=== PATIENT | male | born 1965 | race Caucasian/White ===

== ENCOUNTER → 2016-08-09 | Outpatient (REF) | payer OTHER ==
[~2016-08-09] MED LIST: ALBU17IN INH; ALPRTAB4 PO; ANDRGEL TD; BUPR1TAB17 PO; SIMV40TA2 PO; TRAZ100T4 PO
== END ==
LOC: M LAB REF 13:10
PROVIDERS: ATTEND Internal Medicine
DX: E29.1 Testicular hypofunction (principal)

== ENCOUNTER → 2017-01-14 | Outpatient (REF) | payer OTHER ==
[~2017-01-14] MED LIST changes: -BUPR1TAB17 PO; +BUPR1TAB53 PO; +TRAZ-136 PO; -TRAZ100T4 PO
== END ==
LOC: M LAB REF 17:34
PROVIDERS: ATTEND Internal Medicine Medical Oncology
DX: C62.90 Malignant neoplasm of unspecified testis, unspecified whether descended or undescended (principal)

== ENCOUNTER → 2017-02-18 | Outpatient (REF) | payer OTHER | LOC: M LAB REF 15:27 | PROVIDERS: ATTEND Internal Medicine | DX: E29.1 Testicular hypofunction (principal) ==

== ENCOUNTER 2017-04-05 18:21 | Emergency (ER) | payer OTHER ==
[2017-04-05 20:44] LABS: KETONE, URINE AUTO RFX NEGATIVE (NEGATIVE); LEUKOCYTE ESTERASE UR AUTO RFX NEGATIVE (NEGATIVE); NITRITE, URINE AUTO RFX NEGATIVE (NEGATIVE); RBC, URINE AUTO RFX 2 /HPF (0-3); SPECIFIC GRAVITY UR AUTO RFX 1.006 (1.002-1.035); SQUAM EPITHELIAL CELL UR AURFX 0 /HPF (0-6); WBC, URINE AUTO RFX 1 /HPF (0-3)
[2017-04-05] MEDS: NS 500 ML IV (20:46)
[2017-04-05] MEDS: MORPHINE 4 MG/ML 1ML SYRINGE IV (20:46)
[2017-04-05 20:56] LABS: BASO % 0.4 % (0.0-1.0); EOS # 0.3 10^3/uL (0.0-0.50); EOS % 2.9 % (0.0-3.0); HEMATOCRIT 43.8 % (42.0-52.0); HEMOGLOBIN 14.8 g/dl (14.0-18.0); IMMATURE GRANULOCYTE % 0.4 % (0-0); LYMPH # 2.1 10^3/uL (1.5-4.5); LYMPH % 24.7 % (24.0-44.0); MEAN CORPUSCULAR HGB CONC 33.8 g/dl (32.0-36.5); MEAN CORPUSCULAR VOLUME 88.7 fl (80.0-96.0); MONO # 0.6 10^3/uL (0.0-0.8); MONO % 7.3 % (0.0-5.0); NEUTROPHILS # 5.5 10^3/uL (1.8-7.7); NEUTROPHILS % 64.3 % (36.0-66.0); PLATELET COUNT, AUTOMATED 185 10^3/uL (150-450); RED BLOOD COUNT 4.94 10^6/uL (4.30-6.10); RED CELL DISTRIBUTION WIDTH 12.4 % (11.5-14.5); WHITE BLOOD COUNT 8.6 10^3/uL (4.0-10.0)
[2017-04-05 21:19] LABS: ALBUMIN 4.1 GM/DL (3.2-5.2); ALBUMIN/GLOBULIN RATIO 1.05 (1.00-1.93); ALKALINE PHOSPHATASE 53 U/L (45-117); ALT/SGPT 73 U/L (12-78); ANION GAP 6 MEQ/L (8-16); AST/SGOT 24 U/L (7-37); BILIRUBIN,DIRECT < 0.1 MG/DL (0.0-0.2); BILIRUBIN,TOTAL 0.2 MG/DL (0.2-1.0); BLOOD UREA NITROGEN 21 MG/DL (7-18); CALCIUM LEVEL 8.8 MG/DL (8.5-10.1); CARBON DIOXIDE LEVEL 31 MEQ/L (21-32); CHLORIDE LEVEL 103 MEQ/L (98-107); CREATININE FOR GFR 1.09 MG/DL (0.70-1.30); GLOMERULAR FILTRATION RATE > 60.0 (>60); GLUCOSE, FASTING 135 MG/DL (70-105); LIPASE 341 U/L (73-393); POTASSIUM SERUM 3.8 MEQ/L (3.5-5.1); SODIUM LEVEL 140 MEQ/L (136-145)
[2017-04-05] MEDS ORDERED: ISOVUE-370 76% 100ML VIAL (Q9967) As Ordered (21:23)
== END 2017-04-06 00:04 | disposition home or self-care (01) ==
LOC: M ED 04-06 00:04
DX: R10.30 Lower abdominal pain, unspecified (principal); E11.9 Type 2 diabetes mellitus without complications; E78.5 Hyperlipidemia, unspecified; J45.909 Unspecified asthma, uncomplicated; G47.30 Sleep apnea, unspecified; F41.9 Anxiety disorder, unspecified; F32.9 Major depressive disorder, single episode, unspecified; Z85.47 Personal history of malignant neoplasm of testis; Z90.79 Acquired absence of other genital organ(s); Z79.84 Long term (current) use of oral hypoglycemic drugs; Z79.899 Other long term (current) drug therapy
CPT/HCPCS: Q9967

== ENCOUNTER → 2017-08-18 | Outpatient (REF) | payer OTHER ==
[2017-08-18 13:04] LABS: TESTOSTERONE 871 NG/DL (241-827)
== END ==
LOC: M LAB REF 12:19
DX: E29.1 Testicular hypofunction (principal)

== ENCOUNTER → 2017-08-29 | Outpatient (REF) | payer OTHER | LOC: M LAB REF 19:04 | DX: R19.7 Diarrhea, unspecified (principal) ==

== ENCOUNTER → 2018-02-24 | Outpatient (REF) | payer OTHER ==
[2018-02-24 13:45] LABS: TESTOSTERONE 1236 NG/DL (241-827)
== END ==
LOC: M LAB REF 12:40
DX: E29.1 Testicular hypofunction (principal)
CPT/HCPCS: 84403

== ENCOUNTER → 2018-04-08 | Outpatient (CLI) | payer OTHER ==
[~2018-04-08] MED LIST changes: +AMLO-151 PO; +ANDR1.62 TD; +CEPH500C PO; +METF750T; -TRAZ-136 PO; +TRAZ-163 PO; +TYLE500T78 PO; +VENTAER IN
--- NOTE | 2018-04-08 09:47 | REP ---
Right upper quadrant sonography: History: Elevated liver function studies. Findings: Scanning through right upper quadrant of the abdomen demonstrates a normal sized thin-walled gallbladder without evidence of stone or polyp. Common bile duct is normal measuring 0.5 cm in greatest diameter. There is some increased echogenicity in the liver consistent with fatty infiltration. There is some sparing near the gallbladder. Limited views of the pancreas show no abnormality. There is no evidence of ascites. A normal caliber aorta is seen. No right renal abnormality is noted. The right kidney measures 12.4 x 5.8 x 6.0 cm. Impression: There is evidence of mild fatty infiltration of the liver. Otherwise negative right upper quadrant sonography. Electronically Signed by Dewayne Guadalupe MD 04/08/2018 06:35 P
== END ==
LOC: M RAD 06:36
PROVIDERS: ATTEND Internal Medicine Hematology & Oncology
DX: R79.89 Other specified abnormal findings of blood chemistry (principal)

== ENCOUNTER → 2018-09-01 | Outpatient (REF) | payer OTHER | LOC: M LABDRAW1 12:53 | PROVIDERS: ATTEND Internal Medicine | DX: E29.1 Testicular hypofunction (principal) ==

== ENCOUNTER → 2019-03-10 | Outpatient (REF) | payer OTHER ==
[~2019-03-10] MED LIST changes: -METF750T; +METF750T36; -SIMV40TA2 PO; +SIMV40TA20 PO
== END ==
LOC: M LAB REF 12:32
PROVIDERS: ATTEND Internal Medicine
DX: E29.1 Testicular hypofunction (principal)

== ENCOUNTER → 2020-03-28 | Outpatient (REF) | payer OTHER ==
[~2020-03-28] MED LIST changes: -AMLO-151 PO; +AMLO-180 PO; -TRAZ-163 PO; +TRAZ-257 PO
[2020-03-28 13:36] LABS: RHEUMATOID FACTOR QUANT < 10.0 IU/ML (<15.0)
[2020-03-28 13:38] LABS: TESTOSTERONE 917 NG/DL (241-827)
== END ==
LOC: M LAB REF 12:30
PROVIDERS: ATTEND Internal Medicine
DX: E29.1 Testicular hypofunction (principal); M15.9 Polyosteoarthritis, unspecified

== ENCOUNTER → 2020-09-29 | Outpatient (REF) | payer OTHER | LOC: M LAB REF 12:41 | PROVIDERS: ATTEND Internal Medicine | DX: E29.1 Testicular hypofunction (principal) ==

== ENCOUNTER → 2021-05-08 | Outpatient (REF) | payer OTHER | LOC: M LAB REF 11:34 | PROVIDERS: ATTEND Internal Medicine | DX: E29.1 Testicular hypofunction (principal) ==

== ENCOUNTER → 2022-05-13 | Outpatient (REF) | payer OTHER | LOC: M LAB REF 11:30 | PROVIDERS: ATTEND Internal Medicine | DX: E29.1 Testicular hypofunction (principal) ==

== ENCOUNTER → 2023-05-01 | Outpatient (CLI) | payer OTHER | LOC: M RAD 13:19 | PROVIDERS: ATTEND Nurse Practitioner Adult Health | DX: R06.2 Wheezing (principal) ==

== ENCOUNTER → 2023-08-22 | Outpatient (REF) | payer OTHER ==
[2023-08-23 10:08] LABS: TESTOSTERONE FREE (DIRECT) 16.9 pg/mL (7.2-24.0)
== END ==
LOC: M LAB REF 12:16
PROVIDERS: ATTEND Internal Medicine
DX: E29.1 Testicular hypofunction (principal)

== ENCOUNTER → 2023-09-23 | Outpatient (REF) | payer OTHER | LOC: M LAB REF 11:40 | PROVIDERS: ATTEND Internal Medicine | DX: E29.1 Testicular hypofunction (principal) ==

== ENCOUNTER → 2024-12-17 | Outpatient (REF) | payer OTHER ==
[~2024-12-17] MED LIST changes: -ANDR1.62 TD; +BUPR150T15 PO; -BUPR1TAB53 PO; +TEST75GE10 TD
== END ==
LOC: M LAB REF 11:36
PROVIDERS: ATTEND Internal Medicine
DX: E29.1 Testicular hypofunction (principal)